=== PATIENT | male | born 1990 | race Hispanic/Latino ===

== ENCOUNTER 2018-05-30 08:20 | Emergency (ER) | payer SELFPAY ==
--- NOTE | 2018-05-30 11:02 | Emergency Department Report ---
ED Male HPI - General Chief complaint: Skin/Abscess/Foreign Body Stated complaint: LUMP,SWELLING Time Seen by Provider: 05/30/18 10:52 Source: patient, family Mode of arrival: Ambulatory Limitations: No Limitations - History of Present Illness Initial comments: This is a 27-year-old patient here reports that he has a lump swelling and pain to the left scrotal area 1.5 days. Denies any injury. He said it's decreasing in size but he was told he has a lump to the emergency room to get it checked out. He reports pain toilet attempting to site. Pain worse with touch and movement but no alleviating factor. Denies any fever or chills. Denies any injury denies any abdominal/ back pain. Denies any denies any penile drainage, rash and he is of concern for STD. MD Complaint: other (scrotal redness, swelling and pain.) Onset/Timin (1.5 days) -: days(s) Location: left testicle (scrotum) Radiation: none Severity: mild Severity scale (0 -10): 2 Quality: dull Consistency: constant Improves with: none Worsens with: palpation, movement swelling, mass, other (scrotal redness). denies: discharge, rash, urinary retention, blood in urine, dysuria, fever, nausea/vomiting, incontinence - Related Data Sexually active: Yes Previous Rx's Medication Instructions Recorded Last Taken Type Ibuprofen [Motrin] 600 mg PO Q8H PRN 12 Days #15 05/30/18 Unknown Rx tablet Sulfamethoxazole/Trimethoprim 1 each PO BID 10 Days #20 tablet 05/30/18 Unknown Rx [Bactrim DS TAB] Allergies Allergy/AdvReac Type Severity Reaction Status Date / Time No Known Allergies Allergy Unverified 05/30/18 08:28 ED Review of Systems ROS: Stated complaint: LUMP,SWELLING Other details as noted in HPI Constitutional: denies: chills, fever Respiratory: denies: cough, shortness of breath, wheezing Cardiovascular: denies: chest pain, palpitations Gastrointestinal: denies: abdominal pain, nausea, vomiting Genitourinary: other (scrotal redness, pain and mass.). denies: urgency, dysuria, frequency, hematuria, discharge, testicular pain, testicular mass Musculoskeletal: denies: back pain, joint swelling, arthralgia, myalgia Skin: other (scrotal redness). denies: rash, lesions Neurological: denies: headache, weakness ED Past Medical Hx - Past Medical History Previous Medical History?: No - Surgical History Past Surgical History?: Yes Additional Surgical History: tonsillectomy - Family History Family history: hypertension - Social History Smoking Status: Never Smoker Substance Use Type: None - Medications Home Medications: Home Medications Medication Instructions Recorded Confirmed Last Taken Type Ibuprofen [Motrin] 600 mg PO Q8H PRN 12 Days #15 05/30/18 Unknown Rx tablet Sulfamethoxazole/Trimethoprim 1 each PO BID 10 Days #20 tablet 05/30/18 Unknown Rx [Bactrim DS TAB] ED Physical Exam - General Limitations: No Limitations General appearance: alert, in no apparent distress - Head Head exam: Present: atraumatic, normocephalic, normal inspection - Eye Eye exam: Present: normal appearance, PERRL, EOMI Pupils: Present: normal accommodation - ENT ENT exam: Present: normal exam, normal orophraynx, mucous membranes moist - Neck Neck exam: Present: normal inspection, full ROM. Absent: tenderness, lymphadenopathy - Respiratory Respiratory exam: Present: normal lung sounds bilaterally. Absent: respiratory distress, chest wall tenderness - Cardiovascular Cardiovascular Exam: Present: regular rate, normal rhythm, normal heart sounds. Absent: systolic murmur, diastolic murmur - GI/Abdominal GI/Abdominal exam: Present: soft, normal bowel sounds. Absent: distended, tenderness, guarding, rebound, rigid, organomegaly, mass, hernia - exam: Present: scrotal swelling (left). Absent: normal inspection, testicular tenderness, urethral discharge, vertical testicular lie External exam: Present: erythema (left scrotum), swelling. Absent: lesions, lacerations, ecchymosis, bleeding - Expanded Exam Expanded Male exam: Present: erythema (scrotum). Absent: phimosis, paraphimosis, penile swelling, lesions, induration, perineal induration, priapism exam: Cremasteric Reflex Present: Left, Right - Extremities Exam Extremities exam: Present: normal inspection, full ROM, normal capillary refill. Absent: tenderness, pedal edema, joint swelling, calf tenderness - Back Exam Back exam: Present: normal inspection, full ROM. Absent: tenderness, CVA tenderness (R), CVA tenderness (L), muscle spasm, paraspinal tenderness, vertebral tenderness - Neurological Exam Neurological exam: Present: alert, oriented X3, normal gait - Psychiatric Psychiatric exam: Present: normal affect, normal mood - Skin Skin exam: Present: warm, dry, intact, normal color, erythema (swelling, TTP) ED Course Vital Signs 05/30/18 08:28 Temperature 98 F Pulse Rate 95 H Respiratory 16 Rate Blood Pressure 141/90 O2 Sat by Pulse 97 Oximetry - Reevaluation(s) Reevaluation #1: 05/30/18 11:03 Patient with testicular pain mass. Refuses pain medication. Awaiting ultrasound ED Medical Decision Making - Radiology Data Radiology results: report reviewed Testicular ultrasound dictated by radiologist and reported myself. Please refer to report below for details. Patient: BETH BURNHAM MR#: [id number] : 1990 Acct:[id number] Age/Sex: 27 / M ADM Date: 05/30/18 Loc: ED Attending Dr: Ordering Physician: MELQUIADES HYATT Date of Service: 05/30/18 Procedure(s): US testicular doppler comp Accession Number(s): [id number] cc: MELQUIADES HYATT FINAL REPORT EXAM: US TESTICULAR DOPPLER COMP HISTORY: testicular pain with mass COMPARISON: None. TECHNIQUE: Grayscale and Doppler ultrasound of the scrotum was performed. FINDINGS: The right testicle measures 3.6 x 1.8 x 2.4 centimeters. There is normal echogenicity. There is normal arterial and venous flow to the right testicle. The right epididymis is normal in appearance. There is no hydrocele or varicocele. The left testicle measures 3.4 x 1.7 x 2.4 centimeters. There is normal echogenicity. There is normal arterial and venous flow to the left testicle. The left epididymis is normal in appearance. There is no hydrocele or varicocele. There is edema and thickening of the left-sided scrotal soft tissues. IMPRESSION: Normal sonographic appearance of the bilateral testicles. Edema and thickening of the left-sided scrotal soft tissues. Transcribed By: ELISE Dictated By: LAURA VALDEZ MD Electronically Authenticated By: LAURA VALDEZ MD Signed Date/Time: 05/30/18 1243 DD/ 1247 TD/TT: 05/30/18 1247 - Medical Decision Making This is a 27-year-old male patient here complaining of scrotal pain on the left side. Denies any injury. He is also reporting that scrotum is red and he felt a knot on the left side. No previous history of testicular cancer or family history of testicular cancer. No fever or chills noted. I saw and examined patient and patient has erythema, tenderness to palpate to scrotal area. No definitive mass felt. Patient had ultrasound testicle which was dictated by radiologist report reviewed by myself. Report shows normal sonographic appearance of the bilateral testicles. Edema and thickening of the left-sided scrotal soft tissues. This was discussed the patient and he voiced understanding. Patient did not want any pain medication in emergency area. Mild Cellulitis-patient is started on Bactrim DS. Follow-up with urology and primary care Scrotal pain-patient to start on Motrin. Patient educated on diagnosis, radiology report, treatment plan and he voiced understanding. patient discharged home with his family in stable condition. Vital signs are stable and is afebrile and nontoxic in appearance. Discharge home to follow up with urology and primary care in 2 days. He was given prescription for Motrin and Bactrim DS. - Differential Diagnosis testicular mass, epididymitis, epididymal cysts, cellulitis Critical care attestation.: If time is entered above; I have spent that time in minutes in the direct care of this critically ill patient, excluding procedure time. ED Disposition Clinical Impression: Cellulitis, scrotum, Scrotal pain Disposition: TO HOME OR SELFCARE Is pt being admited?: No Does the pt Need Aspirin: No Condition: Stable Instructions: Cellulitis (ED) Additional Instructions: Please keep affected area clean and dry Follow Urologist as instructed Take antibiotic as prescribed Increase fluid intake Plan warm compresses to affected area 3-4 times a day. Symptoms worsen, return to the emergency room otherwise follow-up with urologist in 2 days. Prescriptions: Ibuprofen [Motrin] 600 mg PO Q8H PRN 12 Days #15 tablet PRN Reason: Pain Sulfamethoxazole/Trimethoprim [Bactrim DS TAB] 1 each PO BID 10 Days #20 tablet Referrals: PRIMARY CAREMD [Primary Care Provider] - 06/01/18 [facility] [Outside] - 06/01/18 [facility] [Provider Group] - 06/01/18 Forms: Accompanied Note, Work/School Release Form(ED)
--- NOTE | 2018-05-30 12:52 | Ultrasound Report ---
FINAL REPORT EXAM: US TESTICULAR DOPPLER COMP HISTORY: testicular pain with mass COMPARISON: None. TECHNIQUE: Grayscale and Doppler ultrasound of the scrotum was performed. FINDINGS: The right testicle measures 3.6 x 1.8 x 2.4 centimeters. There is normal echogenicity. There is normal arterial and venous flow to the right testicle. The right epididymis is normal in appearance. There is no hydrocele or varicocele. The left testicle measures 3.4 x 1.7 x 2.4 centimeters. There is normal echogenicity. There is normal arterial and venous flow to the left testicle. The left epididymis is normal in appearance. There is no hydrocele or varicocele. There is edema and thickening of the left-sided scrotal soft tissues. IMPRESSION: Normal sonographic appearance of the bilateral testicles. Edema and thickening of the left-sided scrotal soft tissues.
[2018-05-30 13:37] VITALS: BP 136/72
== END 2018-05-30 13:34 | disposition home or self-care (01) ==
LOC: ED 08:20
DX: N49.2 Inflammatory disorders of scrotum (principal); Z90.49 Acquired absence of other specified parts of digestive tract
CPT/HCPCS: 93975; 99283